=== PATIENT | female | born 1990 | race Caucasian/White ===

== ENCOUNTER → 2023-12-15 17:40 | Outpatient (REF) | payer BC, SELFPAY | LOC: PNTC 17:40 | PROVIDERS: ATTENDING PHYSICIAN Obstetrics & Gynecology | DX: O35.5XX0 Maternal care for (suspected) damage to fetus by drugs, not applicable or unspecified (principal) | CPT/HCPCS: 76816 ==

== ENCOUNTER → 2024-01-12 17:14 | Outpatient (REF) | payer BC, SELFPAY ==
--- NOTE | 2024-01-13 14:10 | CON.NAS ---
Consultation
-
Date/Time Consultation Requested: 01/11 1200
Date/Time Consultation Performed: 01/120
Requesting Provider: Dr miguelina gamez
Performing Provider: dr silvano zhou
Reason for Consultation: suboxone exposure
Neonatology KATHY Consult
History
/Para: Mothers Age in Years: 33 /Para:
Gestational Age: < 37 weeks
Maternal History: Unremarkable
Current Medication: Subutex
Consult
teleconsult done with mom as she was unable to come in as person
Topics Discussed:
- Variation in presentation for KATHY and not dependent on the amount of medication
- Expected duration of observation, if asymptomatic
- Expect the baby to have symptoms, but not all symptoms need medication
- Non-pharmacologic measures to manage the symptoms include , skin to skin contact as much as possible, a dark quiet room etc.
- Care while on floor, observation
- Eat/sleep/console protocol, how it works, expectation from parents, what to expect from medical staff
- Transfer to pediatrics floor when mom is discharged as long as baby is stable otherwise
- Rescue doses of Morphine/how many/how often before starting on regular every 2-4 hr dosing
- Weaning protocol
- Phenobarbital if needed
- Social Service consult
Maternal Understanding:
1. Verbalizes understanding of KATHY
2. Verbalizes expectations from patient
3. Verbalizes expectations from staff
4. Verbalizes the understanding of eat/sleep/console management and everyone's role
Questions from parents:
Face to Face Time
Total Bjse-iu-Yehz Time (in Minutes): 20 min
== END ==
LOC: PNTC 17:14
PROVIDERS: ATTENDING PHYSICIAN Obstetrics & Gynecology
DX: O35.5XX0 Maternal care for (suspected) damage to fetus by drugs, not applicable or unspecified (principal)
CPT/HCPCS: 76816

== ENCOUNTER 2024-01-30 21:14 | Inpatient (IN) | payer BC, SELFPAY ==
[2024-01-30 22:12] VITALS: BMI 29.1
[2024-01-30 23:16] LABS: % Basophils 0.1 % (0-2); % Eosinophils 0.2 % (0-6); % Immature Granulocytes 0.4 % (0-0.5); % Lymphocytes 16.6 % (20.5-51.1); % Monocytes 7.7 % (1.7-9.3); Absolute Lymphocytes 1.8 10^3/uL (1.2-3.4); Absolute Monocytes 0.8 10^3/uL (0.1-0.6); Absolute Neutrophils 7.9 10^3/uL (1.4-6.5); Hematocrit 33.3 % (37.0-47.0); Hemoglobin 11.4 g/dL (12.0-16.0); Mean Corp Hgb Conc. 34.2 g/dL (33.0-37.0); Mean Corpuscular Hgb 27.7 pg (27.0-31.0); Mean Corpuscular Volume 80.8 fL (81.0-99.0); Mean Platelet Volume 11.9 fL (7.4-10.4); Nucleated Red Blood Cells % 0 %; Platelet Count 175 10^3/uL (130-400); Red Blood Cell Count 4.12 10^6/uL (4.20-5.40); Red Cell Dist. Width 18.5 % (11.5-14.5); White Blood Cell Count 10.6 10^3/uL (4.8-10.8)
[2024-01-31 00:11] LABS: Amphetamines Negative (Negative); Barbiturates Negative (Negative); Benzodiazepines Negative (Negative); Buprenorphine Positive (Negative); Cocaine Negative (Negative); Marijuana Negative (Negative); Methadone Negative (Negative); Methamphetamines Negative (Negative); Opiates Negative (Negative); Phencyclidine Negative (Negative); Tricyclic Antidepressants Negative (Negative)
[2024-01-31 00:27] LABS: Fentanyl, Urine Negative (Negative)
[2024-01-31] MEDS: ZOLOFT 75 MG PO (07:33)
[2024-01-31] MEDS: PRENATAL PLUS 1 TABLET PO ×2 (07:33→07:34)
[2024-01-31] MEDS: SUBUTEX 4 MG SL ×2 (07:42→19:55)
[2024-01-31] MEDS: PITOCIN 30 UNITS/NSS 500 ML IV (08:39)
[2024-01-31] MEDS: ZOFRAN 4 MG IV (10:58)
[2024-01-31] MEDS: LR 1000 IV (11:45)
[2024-01-31] MEDS: SUBLIMAZE 100 MCG EPIDURAL (12:05)
[2024-01-31] MEDS: FENTANYL/BUPIVACAINE 100 EPIDURAL (12:06)
[2024-01-31] MEDS: TYLENOL 650 MG PO (19:54)
[2024-01-31] MEDS: MOTRIN 600 MG PO (19:55)
[2024-02-01] MEDS: MOTRIN 600 MG PO ×3 (05:42→21:26)
[2024-02-01] MEDS: TYLENOL 650 MG PO ×2 (05:42→21:25)
[2024-02-01 06:15] LABS: Hematocrit 32.1 % (37.0-47.0); Hemoglobin 10.5 g/dL (12.0-16.0)
[2024-02-01] MEDS: ZOLOFT 75 MG PO (09:04)
[2024-02-01] MEDS: SENOKOT-S 1 TABLET PO (09:04)
[2024-02-01] MEDS: PRENATAL PLUS 1 TABLET PO (09:04)
[2024-02-01] MEDS: SUBUTEX 4 MG SL ×2 (09:09→20:07)
--- NOTE | 2024-02-01 11:27 | CM ---
Addendum entered by Latrice Valadez 02/01/24 12:24:
Received call from Annita from [facility]
Report received.
Agency is closed today - a case planner will be in touch with Mom Leo tomorrow and discuss reporting process with her
Original Note:
CM met with new parents Leo and Haider Trevino
Parents confirmed address listed. Living in the home are parents, daughter Kit 2 1/2, and paternal Grand-mother
Parents both work [employer]
Parents have named their daughter Shi
Mom plans to breast feed infant and has a breast pump
Parents reports they have all supplies for including car seat
Mom reports plans to take to [facility] - will schedule appt closer to infants discharge
Mom had positive toxicology screen for buprenorphine on 01/01/2024
CM discussed positive screen - parents aware. Mom endorses buprenorphine use.
Sees Dr Jackelin De Los Santos in [place] who prescribes medication.
Mom reports past use of Percocet - has been seeing Dr De Los Santos for over 2 years
to remain in hospital for observation for 5 days ()
CM explained to parents that call would be placed to [facility] to report + toxicology screen
CM called [facility] [phone]
Spoke with Jennie #[phone] - report made
CY [address] faxed to [facility]
not to be discharged until [facility] complete report
[2024-02-01] MEDS: FEOSOL 325 MG PO (15:11)
[2024-02-02] MEDS: SENOKOT-S 1 TABLET PO (09:06)
[2024-02-02] MEDS: PRENATAL PLUS 1 TABLET PO (09:06)
[2024-02-02] MEDS: MOTRIN 600 MG PO (09:06)
[2024-02-02] MEDS: FEOSOL 325 MG PO (09:06)
[2024-02-02] MEDS: ZOLOFT 75 MG PO (09:06)
--- NOTE | 2024-02-02 09:56 | CM ---
CM received call from Barrington Tabares from [facility]
Reports she will be following this case
Planning to come to hospital today to meet with Mom and Baby
Reports she will update CM with updates regarding safety plan
CM will continue to follow
[2024-02-02] MEDS: SUBUTEX SL (10:25)
[2024-02-03 16:23] LABS: Syphilis/T. pallidum Ab Reflex Negative (Negative)
== END 2024-02-02 18:49 | disposition home or self-care (01) | DRG 807 ==
LOC: LDRP 21:14
PROVIDERS: Obstetrics & Gynecology; ADMITTING PHYSICIAN Obstetrics & Gynecology
PROC: 10E0XZZ Delivery of Products of Conception, External Approach (ICD-10-PCS; 2024-01-31)
PROC: 0KQM0ZZ Repair Perineum Muscle, Open Approach (ICD-10-PCS; 2024-01-31)
DX: O34.211 Maternal care for low transverse scar from previous cesarean delivery (principal); Z37.0 Single live birth; N85.8 Other specified noninflammatory disorders of uterus; O48.0 Post-term pregnancy; Z3A.40 40 weeks gestation of pregnancy; O70.1 Second degree perineal laceration during delivery
CPT/HCPCS: 88307; 80306; 80307; 85014; 85018; 85025; 86780; 86850; 86900; 86901